=== PATIENT | male | born 2000 | race American Indian/Alaskan Native ===

== ENCOUNTER 2020-06-02 13:52 | Emergency (ER) | payer OTHER ==
[2020-06-02] MEDS ORDERED: FLU VACC QS2020-21(6MOS UP)/PF 60 MCG/0.5 ML SYRINGE IM ONE (14:30)
--- NOTE | 2020-06-02 15:25 | CR ---
Abdomen: Supine view of the abdomen was obtained. Comparison: No prior study. Bowel gas pattern appears within normal limits. No abnormal calcifications or soft tissue abnormality is seen. Bony structures appear within normal limits for the patient's age. There is partial transitional segments noted at the lumbosacral junction with pseudoarticulation to the sacrum. No acute osseous finding is otherwise seen. Impression: 1. Partial transitional segment at the lumbosacral junction as described above. 2. Nothing acute is otherwise seen. Diagnostic code #2
--- NOTE | 2020-06-02 15:30 | EDM.PDOC ---
ED HPI GENERAL MEDICAL PROBLEM - General Chief Complaint: Abdominal Pain Stated Complaint: ABDOMINAL PAIN AND GAS Time Seen by Provider: 06/02/20 14:12 Source of Information: Reports: Patient, RN Notes Reviewed History Limitations: Reports: No Limitations - History of Present Illness INITIAL COMMENTS - FREE TEXT/NARRATIVE: Patient is a 19-year-old male who presents to the ED for the evaluation of his ongoing abdomen pain. Patient notes for the last year or so, he has been having issues with the right side of his abdomen and lower abdomen. He notes that he has a history of Crohn's disease within his family and is concerned he might have that. He notes that certain foods seem to aggravate this, but not necessarily spicy or fatty foods. He has had loose stools for a good portion of the last few weeks and notes that he has not had a good solid bowel movement for that long as well. He does not take any medication for his abdomen discomfort. He states that he also feels that he has issues with digesting food, he feels like he is constipated, but then cannot go to the bathroom. He has no problem urinating. Patient has no prior abdomen surgeries. He has no regular care provider. He notes that he vapes every day, he is a social drinker, and uses marijuana fairly regularly. Patient denies any other sick-like symptoms, fever/chills, cough/shortness of breath, nausea/vomiting/diarrhea. Right Abdomen Pain Score (Numeric/FACES): 2 - Related Data Allergies Allergy/AdvReac Type Severity Reaction Status Date / Time shellfish derived Allergy Severe Swelling Verified 06/02/20 14:06 Home Meds: Home Meds . [No Known Home Meds] 06/02/20 [History] Past Medical History Other HEENT History: lymph node inflammation behind both ears Social & Family History - Tobacco Use Tobacco Use Status *Q: Current Every Day Tobacco User Years of Tobacco use: 2 Packs/Tins Daily: 0.5 - Caffeine Use Caffeine Use: Reports: Soda - Recreational Drug Use Recreational Drug Type: Reports: Marijuana/Hashish Other Recreational Drug Type: monthly ED ROS GENERAL - Review of Systems Review Of Systems: Comprehensive ROS is negative, except as noted in HPI. ED EXAM, GI/ABD - Physical Exam Exam: See Below Exam Limited By: No Limitations General Appearance: Alert, WD/WN, No Apparent Distress Respiratory/Chest: No Respiratory Distress, Lungs Clear, Normal Breath Sounds, No Accessory Muscle Use, Chest Non-Tender Cardiovascular: Normal Peripheral Pulses, Regular Rate, Rhythm, No Edema GI/Abdominal Exam: Normal Bowel Sounds, Soft, No Distention, No Mass, Tender (generalized abd tenderness) Extremities: Normal Inspection, Normal Capillary Refill Neurological: Alert, Oriented, Normal Cognition, No Motor/Sensory Deficits Psychiatric: Normal Affect, Normal Mood Skin Exam: Warm, Dry, Intact, Normal Color, No Rash Course - Vital Signs Last Recorded V/S: Last Vital Signs Temp 97.5 F 06/02/20 14:10 Pulse 71 06/02/20 14:10 Resp 16 06/02/20 14:10 BP 129/89 06/02/20 14:10 Pulse Ox 96 06/02/20 14:10 - Orders/Labs/Meds Orders: Active Orders 24 hr Category Date Time Status Influenza Vaccine Charge [RC] .DISCHARGE Care 06/02/20 14:09 Active KUB [Abdomen 1V Flat] [CR] Stat Exams 06/02/20 14:33 Ordered Labs: Laboratory Tests 06/02/20 06/02/20 Range/Units 14:45 14:45 WBC 5.71 (4.23-9.07) K/mm3 RBC 5.17 (4.63-6.08) M/mm3 Hgb 15.2 (13.7-17.5) gm/dl Hct 44.7 (40.1-51.0) % MCV 86.5 (79.0-92.2) fl MCH 29.4 (25.7-32.2) pg MCHC 34.0 (32.2-35.5) g/dl RDW Std Deviation 40.8 (35.1-43.9) fL Plt Count 265 (163-337) K/mm3 MPV 8.7 L (9.4-12.3) fl Neut % (Auto) 72.2 H (34.0-67.9) % Lymph % (Auto) 21.2 L (21.8-53.1) % [place] % (Auto) 5.3 (5.3-12.2) % Eos % (Auto) 1.1 (0.8-7.0) Baso % (Auto) 0.0 L (0.1-1.2) % Neut # (Auto) 4.13 (1.78-5.38) K/mm3 Lymph # (Auto) 1.21 L (1.32-3.57) K/mm3 [place] # (Auto) 0.30 (0.30-0.82) K/mm3 Eos # (Auto) 0.06 (0.04-0.54) K/mm3 Baso # (Auto) 0.00 L (0.01-0.08) K/mm3 Sodium 141 (136-145) mEq/L Potassium 3.9 (3.5-5.1) mEq/L Chloride 104 (98-107) mEq/L Carbon Dioxide 30 (21-32) mEq/L Anion Gap 10.9 (5-15) BUN 13 (7-18) mg/dL Creatinine 1.0 (0.7-1.3) mg/dL Est Cr Clr Drug Dosing 120.04 mL/min Estimated GFR (MDRD) > 60 (>60) mL/min BUN/Creatinine Ratio 13.0 L (14-18) Glucose 79 (74-106) mg/dL Calcium 9.6 (8.5-10.1) mg/dL Total Bilirubin 0.7 (0.2-1.0) mg/dL AST 15 (15-37) U/L ALT 20 (16-63) U/L Alkaline Phosphatase 70 (46-116) U/L C-Reactive Protein 0.4 (<1.0) mg/dL Total Protein 8.6 H (6.4-8.2) g/dl Albumin 4.4 (3.4-5.0) g/dl Globulin 4.2 gm/dL Albumin/Globulin Ratio 1.1 (1-2) Meds: Medications Discontinued Medications Generic Name Dose Route Start Last Admin Trade Name Freq PRN Reason Stop Dose Admin Influenza Virus Vaccine 60 mcg 06/02/20 14:30 Fluzone Quad [id number] Syringe IM 06/02/20 14:31 .ONCE ONE - Re-Assessments/Exams Free Text/Narrative Re-Assessment/Exam: 06/02/20 15:28 Patient presents to the ED for his ongoing abdomen discomfort. For today's purposes we will check some basic labs, and abdomen x-ray. All of these were obtained and are unremarkable, the abdomen x-ray shows nonspecific bowel gas pattern. Not suggestive of constipation, or obstruction. I will direct the patient to follow-up with a regular care provider for ongoing testing and symptomatic treatment. Departure - Departure Time of Disposition: 15:29 Disposition: Home, Self-Care 01 Condition: Good Clinical Impression: Abdominal discomfort, Family history of Crohn's disease - Discharge Information *PRESCRIPTION DRUG MONITORING PROGRAM REVIEWED*: No *COPY OF PRESCRIPTION DRUG MONITORING REPORT IN PATIENT CHARLEY: No Instructions: Abdominal Pain, Adult, [id number] Referrals: PCP,None [Primary Care Provider] - Additional Instructions: You were evaluated in the ER today for your ongoing abdomen discomfort. Laboratory evaluation and x-ray demonstrated no focal abnormalities, if you are worried about the possibility of Crohn's disease, unfortunately that is not something we are going be able to diagnose to the ER today. Recommend you follow-up with your regular care provider, please call our clinic at [phone] to schedule an appoint with your family practice provider, so they can do some ongoing investigation for possible further imaging and/or laboratory testing. Please return to the ER at any time if symptoms change or worsen. Sepsis Event Note (ED) - Evaluation Sepsis Screening Result: No Definite Risk - Focused Exam Vital Signs: Vital Signs Temp Pulse Resp BP Pulse Ox 06/02/20 14:10 97.5 F 71 16 129/89 96 - My Orders Last 24 Hours: My Active Orders 06/02/20 14:09 Influenza Vaccine Charge [RC] .DISCHARGE 06/02/20 14:33 KUB [Abdomen 1V Flat] [CR] Stat - Assessment/Plan Last 24 Hours: My Active Orders 06/02/20 14:09 Influenza Vaccine Charge [RC] .DISCHARGE 06/02/20 14:33 KUB [Abdomen 1V Flat] [CR] Stat
== END 2020-06-02 16:00 | disposition home or self-care (01) ==
LOC: JD.ED 13:52
DX: R10.31 Right lower quadrant pain (principal); R10.84 Generalized abdominal pain; F17.210 Nicotine dependence, cigarettes, uncomplicated; Z83.79 Family history of other diseases of the digestive system; Z91.013 Allergy to seafood; Z23 Encounter for immunization
CPT/HCPCS: 36415; 74018; 74018-26; 80053; 85025; 86140; 90686; 99284; G0008